=== PATIENT | female | born 1935 | race Asian ===

== ENCOUNTER 2017-04-18 04:53 | Emergency (ER) | payer OTHER ==
[2017-04-18 05:33] LABS: BASOPHIL % 0.7 % (0-2)
[2017-04-18 05:36] LABS: RED CELL DISTRIBUTION WIDTH 19.7 % (11.5-14.5)
[2017-04-18 05:50] LABS: CARBON DIOXIDE 24.3 mmol/L (21-32); CHLORIDE SERUM 104 mmol/L (98-107); CREATININE SERUM 1.1 mg/dL (0.6-1.0); GLUCOSE SERUM 121 mg/dL (74-106); POTASSIUM SERUM 3.6 mmol/L (3.5-5.1); SODIUM SERUM 139 mmol/L (136-145)
[2017-04-18 05:54] LABS: ALKALINE PHOSPHATASE 111 U/L (46-116); ALT/SGPT 26 U/L (14-59); AST/SGOT 47 U/L (15-37); BILIRUBIN TOTAL 0.33 mg/dL (0.20-1.00); TOTAL PROTEIN, SERUM 7.8 g/dL (6.4-8.2)
[2017-04-18 05:59] LABS: ALBUMIN 3.3 g/dL (3.4-5.0)
[2017-04-18 06:04] LABS: PLATELET COUNT 713 x10^3mcL (130-400)
[2017-04-18 08:33] LABS: CALCIUM 7.6 mg/dL (8.5-10.1); CARBON DIOXIDE 23.8 mmol/L (21-32); CHLORIDE SERUM 104 mmol/L (98-107); GLUCOSE SERUM 101 mg/dL (74-106); POTASSIUM SERUM 3.4 mmol/L (3.5-5.1); SODIUM SERUM 138 mmol/L (136-145)
[2017-04-18 10:32] VITALS: BP 137/72
== END 2017-04-18 11:22 | disposition short-term general hospital (02) ==
LOC: ED 04:53
PROVIDERS: Emergency Medicine
DX: S22.43XA Multiple fractures of ribs, bilateral, initial encounter for closed fracture (principal); S70.12XA Contusion of left thigh, initial encounter; J93.9 Pneumothorax, unspecified; I10 Essential (primary) hypertension; N28.9 Disorder of kidney and ureter, unspecified; E78.5 Hyperlipidemia, unspecified; M19.90 Unspecified osteoarthritis, unspecified site; D47.3 Essential (hemorrhagic) thrombocythemia; Z86.79 Personal history of other diseases of the circulatory system; W01.0XXA Fall on same level from slipping, tripping and stumbling without subsequent striking against object, initial encounter; Y93.89 Activity, other specified; Y99.8 Other external cause status; Y92.89 Other specified places as the place of occurrence of the external cause
CPT/HCPCS: J2270; J2405; J7030; J7040

== ENCOUNTER 2019-02-27 19:45 | Emergency (ER) | payer OTHER ==
[~2019-02-27] VITALS: Ht 152.4 cm; Wt 42.3 kg
[2019-02-27 19:57] VITALS: Ht 152.4 cm; Wt 42.3 kg
[2019-02-27 21:17] LABS: BASOPHIL % 0.8 % (0-2); RED CELL DISTRIBUTION WIDTH 14.1 % (11.5-14.5)
[2019-02-27 21:18] LABS: PLATELET COUNT 533 x10^3mcL (130-400)
[2019-02-27 21:35] LABS: CALCIUM 8.4 mg/dL (8.5-10.1); CARBON DIOXIDE 30.6 mmol/L (21-32); CHLORIDE SERUM 98 mmol/L (98-107); CREATININE SERUM 1.1 mg/dL (0.6-1.0); GLUCOSE SERUM 106 mg/dL (74-106); POTASSIUM SERUM 4.9 mmol/L (3.5-5.1); SODIUM SERUM 132 mmol/L (136-145)
[2019-02-27 21:39] LABS: ALKALINE PHOSPHATASE 97 U/L (46-116); ALT/SGPT 34 U/L (14-59); AST/SGOT 24 U/L (15-37); BILIRUBIN TOTAL 0.4 mg/dL (0.20-1.00); MAGNESIUM 1.9 mg/dL (1.8-2.4); TOTAL PROTEIN, SERUM 7.4 g/dL (6.4-8.2)
[2019-02-27 21:40] LABS: ALBUMIN 3.2 g/dL (3.4-5.0)
[2019-02-27 21:42] LABS: T3 TOTAL 0.81 ng/mL
[2019-02-27 21:51] LABS: FREE T4 1.1 ng/dL (0.76-1.46); FREE THYROXINE INDEX 3.2 ug/dL (1.4-4.5); T4(THYROXINE) 9.3 ug/dL (4.7-13.3)
[2019-02-28 00:28] VITALS: BP 178/77
== END 2019-02-28 00:28 | disposition home or self-care (01) ==
LOC: ED 19:45
PROVIDERS: Emergency Medicine
DX: R00.2 Palpitations (principal); R42 Dizziness and giddiness; I10 Essential (primary) hypertension; E78.00 Pure hypercholesterolemia, unspecified; M19.90 Unspecified osteoarthritis, unspecified site; R11.0 Nausea
CPT/HCPCS: 84439; J7030; J8597